=== PATIENT | male | born 1995 ===

== ENCOUNTER 2018-09-05 20:42 | Emergency (ER) | payer OTHER, MEDICAID ==
[2018-09-05 22:07] VITALS: BP 136/81; PULSE 84; RESP 22; TEMP 98.1; O2SAT 100
--- NOTE | 2018-09-05 22:40 | C.PDOC ---
History Of Present Illness 23 year old male presents to the ED for evaluation after sustaining an injury to his right middle finger at work today. 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 Patient continued working, but noticed the top of his right middle finger became more painful as the day progressed. He notes there is blood collection under the nailbed and presents to the ED for further evaluation. He denies extremity numbness/weakness or any other injuries at this time. Time Seen by Provider: 09/05/18 21:21 Chief Complaint (Nursing): Finger,Hand,&Wrist History Per: Patient History/Exam Limitations: no limitations Onset/Duration Of Symptoms: Hrs Current Symptoms Are (Timing): Still Present Quality: "Pain" Additional History Per: Patient Past Medical History Reviewed: Historical Data, Nursing Documentation, Vital Signs Vital Signs: Last Vital Signs Temp 98.1 F 09/05/18 21:11 Pulse 84 09/05/18 21:11 Resp 22 09/05/18 21:11 BP 136/81 09/05/18 21:11 Pulse Ox 100 09/05/18 21:11 - Medical History PMH: No Chronic Diseases Surgical History: No Surg Hx Family History: States: Unknown Family Hx - Social History Hx Alcohol Use: No Hx Substance Use: No - Immunization History Hx Tetanus Toxoid Vaccination: No Hx Influenza Vaccination: No Hx Pneumococcal Vaccination: No Review Of Systems Constitutional: Negative for: Fever, Chills, Weakness Musculoskeletal: Positive for: Other (right middle finger pain ) Skin: Positive for: Other (blood collection under nailbed of right middle finger ) Neurological: Negative for: Weakness, Numbness Physical Exam - Physical Exam Appears: Non-toxic, No Acute Distress Skin: Normal Color, Warm, No Rash Extremity: Normal ROM, Capillary Refill (less than 2 seconds ), Other (subungual hematoma to right 3rd digit ) Pulses: Left Radial: Normal, Right Radial: Normal Neurological/Psych: Oriented x3, Normal Speech, Normal Sensation ED Course And Treatment O2 Sat by Pulse Oximetry: 100 (on RA ) Pulse Ox Interpretation: Normal Medical Decision Making Medical Decision Making: Electrical cautery performed on nailbed of right 3rd digit. Patient tolerated well with no complications. Area was bandaged. On reassessment, patient reports improvement of pain symptoms. Disposition Counseled Patient/Family Regarding: Diagnosis, Need For Followup - Disposition Disposition: HOME/ ROUTINE Disposition Time: 22:39 Condition: STABLE Instructions: Common Finger Injuries (DC) Forms: [facility] ([place]), General Discharge Instructions - Clinical Impression Clinical Impression: Subungual hematoma of finger - PA / NEUROSURGERY SPINE PHYSICIAN / Resident Statement MD/DO has reviewed & agrees with the documentation as recorded. - Scribe Statement The provider has reviewed the documentation as recorded by the Scribe (Shani Valerio) All medical record entries made by the Scribe were at my direction and person ally dictated by me. I have reviewed the chart and agree that the record accurately reflects my personal performance of the history, physical exam, medical decision making, and the department course for this patient. I have also personally directed, reviewed, and agree with the discharge instructions and disposition. Procedures - Nail Trephination Consent Obtained: Verbal Consent Location (Finger): Middle Method of Drainage: Nail Cautery Patient Tolerated Procedure: Well, No Complications
--- NOTE | 2018-09-06 08:59 | RAD ---
Date of service: 09/05/2018 PROCEDURE: Right middle finger radiographs. HISTORY: Injury COMPARISON: None. TECHNIQUE: AP radiograph of the right hand, as well as spot oblique and lateral images of right middle finger were obtained. FINDINGS: RIGHT MIDDLE FINGER: Right middle finger normal, without fracture of focal lesion. Remainder of the right hand (as seen on the AP view) grossly unremarkable. JOINTS: Normal. SOFT TISSUES: Normal. OTHER FINDINGS: None. IMPRESSION: Normal right middle finger radiographs.
== END 2018-09-05 22:57 | disposition home or self-care (01) ==
LOC: C.ER 20:42
DX: S60.131A Contusion of right middle finger with damage to nail, initial encounter (principal); W22.8XXA Striking against or struck by other objects, initial encounter; Y92.89 Other specified places as the place of occurrence of the external cause; Y99.0 Civilian activity done for income or pay